=== PATIENT | male | born 1985 | race Caucasian/White ===

== ENCOUNTER 2017-12-27 14:26 | Emergency (ER) | payer BC ==
[~2017-12-27] VITALS: Ht 172.7 cm; Wt 59.1 kg
[2017-12-27 14:28] VITALS: TEMP 98.8
[2017-12-27] MEDS ORDERED: AMOXICILLIN 50500 MG PO (15:08)
[2017-12-27 15:14] VITALS: BP 127/78; PULSE 72
== END 2017-12-27 15:14 | disposition home or self-care (01) ==
LOC: COL.ER 14:26
DX: J02.0 Streptococcal pharyngitis (principal)

== ENCOUNTER 2017-12-29 23:21 | Emergency (ER) | payer BC ==
[~2017-12-29] VITALS: Ht 172.7 cm; Wt 59.1 kg
[~2017-12-29 23:21] MED LIST: AMOXICILLIN 50500 MG PO
[2017-12-29 23:26] VITALS: TEMP 98.4
[2017-12-30] MEDS ORDERED: CLEOCIN HCL300 MG PO (00:48)
[2017-12-30] MEDS ORDERED: NORCO 325 MG-51 TAB PO (00:48)
[2017-12-30 02:07] VITALS: BP 124/79; PULSE 96
== END 2017-12-30 02:07 | disposition home or self-care (01) ==
LOC: COL.ER 23:21
DX: J03.00 Acute streptococcal tonsillitis, unspecified (principal)
CPT/HCPCS: J1100; J1170; J7030

== ENCOUNTER 2021-09-09 10:47 | Emergency (ER) | payer BC ==
[~2021-09-09] VITALS: Ht 175.3 cm; Wt 68.2 kg
[~2021-09-09 10:47] MED LIST changes: +CLEOCIN HCL300 MG PO; +NORCO 325 MG-51 TAB PO
[2021-09-09 11:23] VITALS: TEMP 98.5
[2021-09-09 12:24] LABS: BASO # 0.1 K/mm3 (0.0-0.2); BASO % 0.7 % (0.0-2.0); EOS % 0.6 % (0.0-4.0); GRAN # 3.3 K/mm3 (1.4-6.5); GRAN % 45.9 % (42.2-75.2); HEMATOCRIT 45.1 % (42.0-52.0); HEMOGLOBIN 15.6 g/dl (13.5-18.0); LYMPH % 42.4 % (20.0-51.0); MEAN CELL VOLUME 89 fl (80.0-100.0); MEAN CORPUSCULAR HEMOGLOBIN 31 pg (27-31); MEAN CORPUSCULAR HGB CONC 35 g/dl (33.0-37.0); MONO # 0.7 K/mm3 (0.1-0.6); MONO % 10.1 % (1.7-9.3); PLATELET COUNT 285 K/mm3 (130-400); RED BLOOD COUNT 5.06 M/mm3 (4.20-5.60); REDCELL DISTRIBUTION WIDTH-CV 11.7 % (11.5-14.5)
[2021-09-09 12:41] LABS: CALCIUM 9.3 mg/dL (8.4-10.2); CREATININE, serum 0.94 mg/dL (0.72-1.25); POTASSIUM 4.2 mmol/L (3.5-4.5)
[2021-09-09] MEDS ORDERED: FIORICET 325 MG1 TA1 PO (13:42)
[2021-09-09] MEDS ORDERED: REGLAN 10MG10 MG/TAB PO (13:42)
[2021-09-09 13:45] VITALS: BP 116/89; PULSE 82
== END 2021-09-09 13:57 | disposition home or self-care (01) ==
LOC: COL.ER 10:47
PROVIDERS: Emergency Medicine
DX: R51.9 Headache, unspecified (principal); Z28.310 Unvaccinated for COVID-19
CPT/HCPCS: J1885; J2765